=== PATIENT | female | born 1975 | race Caucasian/White ===

== ENCOUNTER 2023-07-22 12:26 | Outpatient (CLI) | payer BC | END 2023-07-22 12:27 | disposition home or self-care (01) | LOC: CSHULT 12:26 | PROVIDERS: ATTEND Otolaryngology Plastic Surgery within the Head & Neck | DX: R22.1 Localized swelling, mass and lump, neck (principal); I88.9 Nonspecific lymphadenitis, unspecified | CPT/HCPCS: 76536 ==

== ENCOUNTER 2025-06-12 10:36 | Outpatient (CLI) | payer BC | END 2025-06-12 10:37 | disposition home or self-care (01) | LOC: CSHMRI 10:36 | PROVIDERS: ATTEND Family Medicine | DX: C50.911 Malignant neoplasm of unspecified site of right female breast (principal) | CPT/HCPCS: 76376; C8908 ==

== ENCOUNTER → 2025-06-15 | Day surgery (SDC) | payer BC | LOC: CSHMAMMO 07:30 | PROVIDERS: ATTEND Internal Medicine | PROC: 0HBT3ZX Excision of Right Breast, Percutaneous Approach, Diagnostic (ICD-10-PCS; principal; 2025-06-15) | DX: D05.91 Unspecified type of carcinoma in situ of right breast (principal); N64.1 Fat necrosis of breast | CPT/HCPCS: 19081; 76098; 88305; 88341; 88342 ==

== ENCOUNTER 2025-07-18 11:00 | Outpatient (CLI) | payer BC | END 2025-07-18 11:01 | disposition home or self-care (01) | LOC: CSHMAMMO 11:00 | PROVIDERS: ATTEND Surgery | DX: C50.911 Malignant neoplasm of unspecified site of right female breast (principal) | CPT/HCPCS: 96372; A9697 ==

== ENCOUNTER 2025-07-18 11:52 | Outpatient (CLI) | payer BC ==
[2025-07-18 12:46] LABS: Hematocrit 35.0 % (34.9-44.5); Hemoglobin 10.5 g/dL (12.0-15.5); Mean Corpuscular Hemoglobin 24.1 pg (27.0-33.0); Mean Corpuscular Volume 80.5 fL (81.6-98.3); Platelet Count 417 10x3/uL (150-450); Red Blood Cell (RBC) Count 4.35 10x6/uL (3.90-5.03); White Blood Cell (WBC) Count 10.68 10x3/uL (3.5-10.5)
[2025-07-18 12:55] LABS: Anion Gap 10 mmol/L (10-20); BUN (Urea Nitrogen) 13 mg/dL (9.8-20.1); Calc. Creatinine Clearance 0 mL/min (70-130); Calcium 8.5 mg/dL (7.8-10.44); Carbon Dioxide 25 mmol/L (22-29); Chloride 108 mmol/L (98-107); Glucose 99 mg/dL (70-105); Potassium 4.0 mmol/L (3.5-5.1); Sodium 139 mmol/L (136-145)
== END 2025-07-18 11:53 | disposition home or self-care (01) ==
LOC: CSHLAB 11:52
PROVIDERS: ATTEND Surgery
DX: Z01.818 Encounter for other preprocedural examination (principal); Z85.3 Personal history of malignant neoplasm of breast
CPT/HCPCS: 80048; 85027; 93005; 93010

== ENCOUNTER 2025-07-27 05:55 | Day surgery (SDC) | payer BC ==
[2025-07-18 12:08] VITALS: BMI 43.9
[2025-07-27] MEDS ORDERED: Bupivacaine HCl 0.5%/Epinephrine 1:200,000/PF 30 ml Vial ONE (06:50)
[2025-07-27] MEDS ORDERED: Bupivacaine/Epinephrine 0.25% 30 ML VIAL ONE (06:50)
[2025-07-27] MEDS ORDERED: Rocuronium Bromide 10 MG/ML (10ML VIAL) ONE (07:08)
[2025-07-27] MEDS ORDERED: PROPOFOL 20 ML ONE ×2 (07:08→07:24)
[2025-07-27] MEDS ORDERED: CEFAZOLIN 2 GM VIAL ONE (07:22)
[2025-07-27] MEDS ORDERED: SUGAMMADEX SODIUM 200 MG/2 ML VIAL ONE (08:12)
[2025-07-27] MEDS ORDERED: HYDROmorphone 0.5 MG/0.5 ML SYRINGE ONE (09:17)
[2025-07-27] MEDS ORDERED: HYDROcodone/Acetaminophen 5/325 mg Tablet ONE (13:58)
== END 2025-07-27 15:15 | disposition home or self-care (01) ==
LOC: CSHSDC 05:55
PROVIDERS: ATTEND Surgery
DX: C50.911 Malignant neoplasm of unspecified site of right female breast (principal); N60.21 Fibroadenosis of right breast; I10 Essential (primary) hypertension; Z17.0 Estrogen receptor positive status [ER+]; Z17.21 Progesterone receptor positive status; Z85.3 Personal history of malignant neoplasm of breast
CPT/HCPCS: 88307; 88341; 88342; A6258; C1713; J1100; J1171; J1580; J2250; J2704; J3010; J3373; Q9968

== ENCOUNTER 2025-08-16 06:41 | Day surgery (SDC) | payer BC ==
[2025-08-15 11:31] VITALS: BMI 45.7
[2025-08-16] MEDS ORDERED: PROPOFOL 20 ML ONE ×2 (07:41→07:43)
[2025-08-16] MEDS ORDERED: Lidocaine 1% PF 5 ML VIAL ONE (07:43)
[2025-08-16] MEDS ORDERED: Bupivacaine HCl 0.5%/Epinephrine 1:200,000/PF 30 ml Vial ONE (07:45)
[2025-08-16 07:59] LABS: #Basophils 0.05 10x3/uL (0.0-0.2); #Eosinophils 0.45 10x3/uL (0.0-0.5); #Monocytes 0.92 10x3/uL (0.0-1.1); #Neutrophils 6.24 10x3/uL (1.5-8.4); %Basophils 0.5 % (0.0-2.0); %Eosinophils 4.2 % (0.0-6.0); %Lymphocytes 28.3 % (18.0-47.0); %Monocytes 8.6 % (0.0-10.0); %Neutrophils 58.0 % (40.0-75.0); Hematocrit 33.6 % (34.9-44.5); Hemoglobin 9.9 g/dL (12.0-15.5); Mean Corpuscular Hemoglobin 23.7 pg (27.0-33.0); Mean Corpuscular Volume 80.4 fL (81.6-98.3); Platelet Count 396 10x3/uL (150-450); Red Blood Cell (RBC) Count 4.18 10x6/uL (3.90-5.03); White Blood Cell (WBC) Count 10.74 10x3/uL (3.5-10.5)
[2025-08-16 08:08] LABS: BHCG - Serum Negative (NEGATIVE); Pregs Control Background? CLEAR/WHITE (CLR/WHITE); Pregs Control Bar Appear? YES (CONTROL BAR)
[2025-08-16 08:11] LABS: Anion Gap 9 mmol/L (10-20); BUN (Urea Nitrogen) 9 mg/dL (9.8-20.1); Calc. Creatinine Clearance 155 mL/min (70-130); Calcium 8.8 mg/dL (7.8-10.44); Carbon Dioxide 23 mmol/L (22-29); Chloride 111 mmol/L (98-107); Glucose 90 mg/dL (70-105); Potassium 4.3 mmol/L (3.5-5.1); Sodium 139 mmol/L (136-145)
[2025-08-16] MEDS ORDERED: CEFAZOLIN 2 GM VIAL ONE (08:30)
[2025-08-16] MEDS ORDERED: Ondansetron PF 4 MG/2 ML Vial ONE (09:25)
[2025-08-16] MEDS ORDERED: Bupivacaine/Epinephrine 0.25% 30 ML VIAL ONE (09:37)
[2025-08-16] MEDS ORDERED: HYDROcodone/Acetaminophen 5/325 mg Tablet ONE (11:02)
== END 2025-08-16 11:44 | disposition home or self-care (01) ==
LOC: CSHSDC 06:41
PROVIDERS: ATTEND Surgery
PROC: 0JH60WZ Insertion of Totally Implantable Vascular Access Device into Chest Subcutaneous Tissue and Fascia, Open Approach (ICD-10-PCS; principal; 2025-08-16)
DX: C50.911 Malignant neoplasm of unspecified site of right female breast (principal); F31.30 Bipolar disorder, current episode depressed, mild or moderate severity, unspecified; I10 Essential (primary) hypertension; Z90.49 Acquired absence of other specified parts of digestive tract; Z90.89 Acquired absence of other organs
CPT/HCPCS: 36415; 71045; 80048; 84703; 85025; A6258; C1788; J1100; J1642; J2704; J3010

== ENCOUNTER 2025-08-17 13:41 | Outpatient (CLI) | payer BC | END 2025-08-17 13:42 | disposition home or self-care (01) | LOC: CSHULT 13:41 | PROVIDERS: ATTEND Internal Medicine | DX: C50.311 Malignant neoplasm of lower-inner quadrant of right female breast (principal); I08.0 Rheumatic disorders of both mitral and aortic valves | CPT/HCPCS: 93306 ==

== ENCOUNTER 2025-10-26 10:23 | Emergency (ER) | payer BC ==
[2025-10-26 12:37] LABS: Platelet Count 32 10x3/uL (150-450)
[2025-10-26 12:46] LABS: ALT (SGPT) 53 U/L (Less than 34); AST (SGOT) 21 U/L (11-34); Albumin 3.4 g/dL (3.1-4.5); Alkaline Phosphatase 87 U/L (40-110); Anion Gap 12 mmol/L (10-20); BUN (Urea Nitrogen) 12 mg/dL (9.8-20.1); Bilirubin, Total 0.5 mg/dL (0.3-1.2); Calc. Creatinine Clearance 0 mL/min (70-130); Calcium 8.5 mg/dL (7.8-10.44); Carbon Dioxide 20 mmol/L (22-29); Chloride 110 mmol/L (98-107); Globulin 2.2 g/dL (2.4-3.5); Glucose 112 mg/dL (70-105); Potassium 3.6 mmol/L (3.5-5.1); Sodium 138 mmol/L (136-145)
[2025-10-26 12:50] LABS: Troponin I Less than 0.010 ng/mL (< 0.028)
[2025-10-26 13:23] LABS: #Basophils Less than 0.03 10x3/uL (0.0-0.2); #Eosinophils Less than 0.03 10x3/uL (0.0-0.5); #Monocytes 0.27 10x3/uL (0.0-1.1); #Neutrophils 1.81 10x3/uL (1.5-8.4); %Basophils 0.3 % (0.0-2.0); %Eosinophils 0.3 % (0.0-6.0); %Lymphocytes 33.6 % (18.0-47.0); %Monocytes 8.3 % (0.0-10.0); %Neutrophils 55.4 % (40.0-75.0); Hematocrit 26.1 % (34.9-44.5); Hemoglobin 8.5 g/dL (12.0-15.5); Mean Corpuscular Hemoglobin 30.4 pg (27.0-33.0); Mean Corpuscular Volume 91.2 fL (81.6-98.3); Red Blood Cell (RBC) Count 2.83 10x6/uL (3.90-5.03); White Blood Cell (WBC) Count 3.27 10x3/uL (3.5-10.5)
[2025-10-26 13:42] LABS: Platelet Adequacy Comment Appears Decreased
== END 2025-10-26 14:36 | disposition home or self-care (01) ==
LOC: CSHERS 10:23
DX: D61.818 Other pancytopenia (principal); G62.9 Polyneuropathy, unspecified; R29.700 NIHSS score 0
CPT/HCPCS: 71045; 80053; 84484; 85025; 86850; 86900; 86901; 93005; 94760; J1642